=== PATIENT | male | born 1995 | race Two or more races ===

== ENCOUNTER 2020-05-13 07:02 | Emergency (ER) | payer OTHER ==
[~2020-05-13] VITALS: Ht 172.7 cm; Wt 74.0 kg
[2020-05-13 07:07] VITALS: BP 122/68
--- NOTE | 2020-05-13 07:15 | NUR ---
PT BROUGHT BACK TO ROOM VIA WC WITH MARKETING OPERATIONS SPECIALIST.
--- NOTE | 2020-05-13 07:40 | NUR ---
PT IS A 24M COMPLAINING OF RIGHT ANKLE PAIN AND A NODULE ON HIS RIGHT TESTICLE. HE DENIES TRAUMA TO THE ANKLE BUT HAS PAIN BEARING WEIGHT. HE IS UNSURE HOW LONG THE NODULE HAS BEEN THERE BUT AT LEAST 6 MONTHS. DENIES PAIN. PROVIDER AT BEDSIDE FOR EVAL. CALL LIGHT WITHIN REACH.
--- NOTE | 2020-05-13 07:55 | NUR ---
pt to u/s via tirso
--- NOTE | 2020-05-13 09:59 | NUR ---
DISCHARGE INSTRUCTIONS REVIEWED
== END 2020-05-13 10:01 | disposition home or self-care (01) ==
LOC: ED 08:45
DX: S96.911A Strain of unspecified muscle and tendon at ankle and foot level, right foot, initial encounter (principal); N50.812 Left testicular pain; B35.4 Tinea corporis; M79.606 Pain in leg, unspecified; F17.200 Nicotine dependence, unspecified, uncomplicated; X58.XXXA Exposure to other specified factors, initial encounter; Y93.89 Activity, other specified; Y92.89 Other specified places as the place of occurrence of the external cause; Y99.8 Other external cause status
CPT/HCPCS: 76870; 99284